=== PATIENT | female | born 1980 | race Caucasian/White ===

== ENCOUNTER 2018-05-11 18:46 | Emergency (ER) | payer OTHER ==
[2018-05-11 18:57] VITALS: BP 124/79; PULSE 92; TEMP 98.6; BMI 28.3
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
== END 2018-05-11 20:24 | disposition home or self-care (01) ==
LOC: JERFT 18:46
DX: R51 Headache (principal); Y04.2XXA Assault by strike against or bumped into by another person, initial encounter; Y93.89 Activity, other specified; Y92.89 Other specified places as the place of occurrence of the external cause; Y99.8 Other external cause status; Y07.499 Other family member, perpetrator of maltreatment and neglect
CPT/HCPCS: 70450-TC; 84703; 99281-25